=== PATIENT | male | born 1970 | race Hispanic/Latino ===

== ENCOUNTER 2021-03-05 16:28 | Emergency (ER) | payer SELFPAY | END 2021-03-05 17:45 | disposition home or self-care (01) | LOC: NAV ERS 16:28 | DX: S90.511A Abrasion, right ankle, initial encounter (principal); I12.9 Hypertensive chronic kidney disease with stage 1 through stage 4 chronic kidney disease, or unspecified chronic kidney disease; E11.22 Type 2 diabetes mellitus with diabetic chronic kidney disease; N18.9 Chronic kidney disease, unspecified; X58.XXXA Exposure to other specified factors, initial encounter ==

== ENCOUNTER 2021-05-08 14:27 | Emergency (ER) | payer SELFPAY ==
[2021-05-08 15:18] LABS: #Lymphocytes 0.5 thou/uL (1.20-3.40); #Monocytes 0.3 thou/uL (0.11-0.59); #Neutrophils 6.3 thou/uL (1.40-6.50); %Basophils 0.1 % (0.0-1.0); %Eosinophils 0.1 % (0.0-10.0); %Lymphocytes 7.2 % (21.0-51.0); %Monocytes 4.5 % (0.0-10.0); Mean Corpuscular HGB CONC 31.7 g/dL (32.0-36.0); Mean Corpuscular Hemoglobin 27.8 pg (27.0-31.0); Mean Corpuscular Volume 87.6 fL (78.0-98.0); Mean Platelet Volume 7.3 fL (7.4-10.4); Platelet Count 139 thou/uL (130-400); RBC Distribution Width 13.3 % (11.5-14.5); Red Blood Cell (RBC) Count 5.74 mill/uL (4.70-6.10); White Blood Cell (WBC) Count 7.2 thou/uL (4.8-10.8)
[2021-05-08 15:33] LABS: ALT (SGPT) 57 U/L (8-55); AST (SGOT) 64 U/L (5-34); Albumin 3.5 g/dL (3.5-5.0); Alkaline Phosphatase 82 U/L (40-110); Anion Gap 16 mmol/L (10-20); BUN (Urea Nitrogen) 18 mg/dL (8.9-20.6); Bilirubin, Total 0.9 mg/dL (0.2-1.2); Calc. Creatinine Clearance 0 mL/min (70-130); Carbon Dioxide 32 mmol/L (22-29); Chloride 91 mmol/L (98-107); Globulin 3.9 g/dL (2.4-3.5); Glucose 127 mg/dL (70-105); Protein, Total 7.4 g/dL (6.0-8.3); Sodium 136 mmol/L (136-145)
[2021-05-08 15:36] LABS: Potassium 2.8 mmol/L (3.5-5.1)
[2021-05-08] MEDS ORDERED: Acetaminophen 500 MG TAB ONE (15:37)
[2021-05-08] MEDS ORDERED: Sodium Chloride 0.9% 1,000 ML ONE (15:37)
[2021-05-08] MEDS ORDERED: Potassium Chloride 10 MEQ/100 ML PREMIX BAG ONE (15:50)
[2021-05-08] MEDS ORDERED: Sodium Chloride 0.9% 250 ML 250 ML ONE (16:35)
== END 2021-05-08 17:23 | disposition home or self-care (01) ==
LOC: NAV ERS 14:27
DX: U07.1 COVID-19 (principal); J12.82 Pneumonia due to coronavirus disease 2019; E86.0 Dehydration; E87.6 Hypokalemia; E11.9 Type 2 diabetes mellitus without complications; I10 Essential (primary) hypertension
CPT/HCPCS: 71045; 80053; 83605; 83880; 84484; 85025; 93005; 96365; J3480; J7050

== ENCOUNTER 2021-05-09 18:46 | Emergency (ER) | payer SELFPAY ==
[2021-05-09 19:21] LABS: #Lymphocytes 0.6 thou/uL (1.20-3.40); #Monocytes 0.5 thou/uL (0.11-0.59); #Neutrophils 4.9 thou/uL (1.40-6.50); %Basophils 0.5 % (0.0-1.0); %Eosinophils 0.3 % (0.0-10.0); %Lymphocytes 10.5 % (21.0-51.0); %Monocytes 7.4 % (0.0-10.0); %Neutrophils 81.3 % (42.0-75.0); Hemoglobin 15.2 g/dL (14.0-18.0); Mean Corpuscular HGB CONC 32.4 g/dL (32.0-36.0); Mean Corpuscular Hemoglobin 28.4 pg (27.0-31.0); Mean Corpuscular Volume 87.6 fL (78.0-98.0); Mean Platelet Volume 7.2 fL (7.4-10.4); Platelet Count 153 thou/uL (130-400); RBC Distribution Width 13.4 % (11.5-14.5); Red Blood Cell (RBC) Count 5.35 mill/uL (4.70-6.10)
[2021-05-09] MEDS ORDERED: Sodium Chloride 0.9% 1,000 ML ONE (19:24)
[2021-05-09] MEDS ORDERED: Ventolin HFA Inhaler 60 PUFF INHALER ONE (19:24)
[2021-05-09 19:38] LABS: ALT (SGPT) 51 U/L (8-55); AST (SGOT) 61 U/L (5-34); Albumin 3.2 g/dL (3.5-5.0); Alkaline Phosphatase 81 U/L (40-110); Anion Gap 15 mmol/L (10-20); BUN (Urea Nitrogen) 12 mg/dL (8.9-20.6); Bilirubin, Total 0.9 mg/dL (0.2-1.2); Calc. Creatinine Clearance 0 mL/min (70-130); Calcium 9.4 mg/dL (7.8-10.44); Carbon Dioxide 32 mmol/L (22-29); Chloride 92 mmol/L (98-107); Globulin 4.3 g/dL (2.4-3.5); Glucose 101 mg/dL (70-105); Potassium 3.4 mmol/L (3.5-5.1); Protein, Total 7.5 g/dL (6.0-8.3); Sodium 136 mmol/L (136-145)
[2021-05-09 19:44] LABS: Bilirubin Negative (Negative); Blood, Urine Trace (Negative); Clarity Clear (Clear); Glucose, Urine (Dipstick) Negative (Negative); Ketone, Urine Negative (Negative); Leukocyte Negative (Negative); Nitrite Negative (Negative); Protein, Urine (Dipstick) Negative (Neg-Trace); pH, Urine 6.5 (5.0-9.0)
[2021-05-09 19:54] LABS: RBC/HPF None Seen HPF (0-3); Squamous Epithelial 0-3 HPF (0-3); WBC/HPF 0-3 HPF (0-3)
[2021-05-09 21:00] LABS: SARS-CoV-2 NAA Rapid Test DETECTED (NotDetected)
[2021-05-09] MEDS ORDERED: Albuterol 200 PUFF (6.7GM INHALER) INH SCH (21:00)
== END 2021-05-09 20:49 | disposition short-term general hospital (02) ==
LOC: NAV ERS 18:46
DX: U07.1 COVID-19 (principal); J12.82 Pneumonia due to coronavirus disease 2019; I10 Essential (primary) hypertension; E11.9 Type 2 diabetes mellitus without complications; Z79.82 Long term (current) use of aspirin; Z79.899 Other long term (current) drug therapy
CPT/HCPCS: 71045; 80053; 81003; 81015; 83605; 83880; 84484; 85025; 87040; 87086; 93005; 94640; 94760; J7050; U0002

== ENCOUNTER 2022-09-23 07:27 | Emergency (ER) | payer OTHER, SELFPAY ==
[2022-09-23] MEDS ORDERED: Ketorolac Tromethamine 30 MG/ML VIAL ONE (08:39)
[2022-09-23] MEDS ORDERED: Iopamidol 370 76% 100 ML VIAL ONE (09:00)
[2022-09-23 09:20] LABS: Hemoglobin 9.8 g/dL (14.0-18.0); Mean Corpuscular HGB CONC 29.5 g/dL (32.0-36.0); Mean Corpuscular Hemoglobin 21.4 pg (27.0-31.0); Mean Corpuscular Volume 72.5 fl (78.0-98.0); Platelet Count 169 10x3/uL (130-400); RBC Distribution Width 15.7 % (11.5-14.5); Red Blood Cell (RBC) Count 4.58 mill/uL (4.70-6.10); White Blood Cell (WBC) Count 6.9 10x3/uL (4.8-10.8)
[2022-09-23 09:21] LABS: #Basophils 0.1 thou/uL (0.0-0.2); #Eosinphils 0.3 thou/uL (0.0-0.7); #Lymphocytes 1.1 thou/uL (1.20-3.40); #Monocytes 0.7 thou/uL (0.11-0.59); #Neutrophils 4.7 thou/uL (1.40-6.50); %Eosinophils 4.4 % (0.0-10.0); %Lymphocytes 15.3 % (21.0-51.0); %Monocytes 10.6 % (0.0-10.0); %Neutrophils 68.7 % (42.0-75.0); Manual Diff?? NO; Mean Platelet Volume 6.4 fL (7.4-10.4)
[2022-09-23 09:22] LABS: ALT (SGPT) 49 U/L (8-55); AST (SGOT) 37 U/L (5-34); Albumin 3.7 g/dL (3.5-5.0); Alkaline Phosphatase 61 U/L (40-110); Anion Gap 10 mmol/L (10-20); BUN (Urea Nitrogen) 13 mg/dL (8.4-25.7); Bilirubin, Total 0.8 mg/dL (0.2-1.2); Calc. Creatinine Clearance 0 mL/min (70-130); Calcium 8.8 mg/dL (7.8-10.44); Carbon Dioxide 29 mmol/L (22-29); Chloride 100 mmol/L (98-107); Estimated GFR 109; Globulin 3.5 g/dL (2.4-3.5); Glucose 102 mg/dL (70-105); Potassium 2.8 mmol/L (3.5-5.1); Protein, Total 7.2 g/dL (6.0-8.3); Sodium 136 mmol/L (136-145)
[2022-09-23 09:38] LABS: SARS-CoV-2 NAA Rapid Test Not Detected (NotDetected)
[2022-09-23 11:08] LABS: Bilirubin Negative (Negative); Blood, Urine Negative (Negative); Clarity Clear (Clear); Glucose, Urine (Dipstick) Negative (Negative); Ketone, Urine Negative (Negative); Leukocyte Negative (Negative); Nitrite Negative (Negative); Protein, Urine (Dipstick) Negative (Neg-Trace); Specific Gravity, Urine 1.025 (1.005-1.030); pH, Urine 7.5 (5.0-9.0)
[2022-09-23] MEDS ORDERED: Acetaminophen 500 MG TAB ONE (11:23)
[2022-09-23] MEDS ORDERED: Potassium Chloride 20 MEQ TAB ONE (11:40)
== END 2022-09-23 14:38 | disposition short-term general hospital (02) ==
LOC: NAV ERS 07:27
DX: M25.552 Pain in left hip (principal); R50.9 Fever, unspecified; I10 Essential (primary) hypertension; E11.9 Type 2 diabetes mellitus without complications
CPT/HCPCS: 71045; 80053; 81003; 83605; 85025; 87040; 96374; J1885; Q9967

== ENCOUNTER 2023-01-31 19:00 | Emergency (ER) | payer SELFPAY ==
[2023-01-31] MEDS ORDERED: cefTRIAXone (ROCEPHIN) 1 GM VIAL ONE (19:27)
[2023-01-31] MEDS ORDERED: TETANUS, DIPHTHERIA TOX,ADULT (TDVAX) 0.5 ML VIAL IM ONE (19:27)
== END 2023-01-31 20:41 | disposition home or self-care (01) ==
LOC: NAV ERS 19:00
DX: L03.115 Cellulitis of right lower limb (principal); I10 Essential (primary) hypertension; E11.9 Type 2 diabetes mellitus without complications; Z23 Encounter for immunization; Z79.899 Other long term (current) drug therapy; W20.8XXA Other cause of strike by thrown, projected or falling object, initial encounter
CPT/HCPCS: 90471; 90714; 96372; J0696